=== PATIENT | male | born 1975 | race Caucasian/White ===

== ENCOUNTER 2021-03-09 08:28 | Outpatient (CLI) | payer BC | END 2021-03-09 08:29 | disposition home or self-care (01) | LOC: SCSRAD 08:28 | PROVIDERS: ATTEND Family Medicine | DX: M13.0 Polyarthritis, unspecified (principal) ==

== ENCOUNTER 2021-03-21 13:51 | Outpatient (CLI) | payer BC | END 2021-03-21 13:52 | disposition home or self-care (01) | LOC: DTY/OP 13:51 | PROVIDERS: ATTEND Surgery | DX: K21.9 Gastro-esophageal reflux disease without esophagitis (principal); E66.01 Morbid (severe) obesity due to excess calories; E78.2 Mixed hyperlipidemia; M15.9 Polyosteoarthritis, unspecified; I10 Essential (primary) hypertension; Z68.39 Body mass index [BMI] 39.0-39.9, adult | CPT/HCPCS: 97802 ==